=== PATIENT | female | born 1990 | race Caucasian/White ===

== ENCOUNTER → 2023-04-14 | Outpatient (CLI) | payer BC ==
[2023-04-14 12:22] LABS: HEMOGLOBIN A1C 5.4 % (4.0-6.0)
[2023-04-14 12:23] LABS: CHOLESTEROL 140 mg/dL (<200); HDL CHOLESTEROL 69 mg/dL (35-85); LDL DIRECT 72 mg/dL (0-99); TRIGLYCERIDES 38 mg/dL (30-200)
== END | disposition home or self-care (01) ==
LOC: LAB 09:19
PROVIDERS: ATTEND Student in an Organized Health Care Education/Training Program
DX: R00.2 Palpitations (principal); R07.89 Other chest pain
CPT/HCPCS: 36415; 80061; 83036

== ENCOUNTER → 2023-04-17 | Outpatient (CLI) | payer BC ==
[~2023-04-17] MED LIST: IOHEXOL 350 MG/ML 100ML INFUS..BTL IV ONE
== END | disposition home or self-care (01) ==
LOC: RAH 09:02 → EDUNIT# 11:00
PROVIDERS: ATTEND Student in an Organized Health Care Education/Training Program
DX: R07.89 Other chest pain (principal); R00.2 Palpitations
CPT/HCPCS: 75574; Q9967

== ENCOUNTER 2023-07-14 07:08 | Day surgery (SDC) | payer BC ==
[2023-07-09 11:37] LABS: BASOPHILS # (AUTO) 0.03 K/uL (0.00-0.20); BASOPHILS % (AUTO) 0.4 % (0.0-5.0); EOSINOPHILS # (AUTO) 0.11 K/uL (0.00-0.70); EOSINOPHILS % (AUTO) 1.6 % (0.0-8.0); IMMATURE GRANULOCYTE ABSOLUTE 0.02 K/uL (0-1); LYMPHOCYTES # (AUTO) 1.6 K/uL (1.0-4.8); MEAN CORPUSCULAR HEMOGLOBIN 29.1 pg (27.0-33.0); MEAN CORPUSCULAR HGB CONC 32.3 g/dL (32.0-36.0); MEAN CORPUSCULAR VOLUME 90.3 fL (79-99); MONOCYTES # (AUTO) 0.3 K/uL (0.1-1.0); MONOCYTES % (AUTO) 4.9 % (3.0-13.0); NEUTROPHILS # (AUTO) 4.9 K/uL (1.8-7.7); NEUTROPHILS % (AUTO) 69.8 % (40.0-77.0); PLATELET COUNT (AUTO) 136 K/uL (130-400); RED BLOOD CELL COUNT(AUTO) 4.43 MIL/uL (4.00-5.50)
[2023-07-09 11:43] LABS: INR 0.94 (0.85-1.15); PROTHROMBIN TIME 11.1 SEC (9.6-11.6)
[2023-07-09 11:45] LABS: PARTIAL THROMBOPLASTIN TIME 29.9 SEC (26.3-35.5)
[2023-07-09 11:58] LABS: CREATININE 0.5 mg/dL (0.5-1.0); POTASSIUM 4.1 mmol/L (3.5-5.1)
[2023-07-09 12:03] VITALS: BP 139/89; PULSE 62; RESP 18
[2023-07-14] VITALS (10 sets, daily range): BP systolic 113–138; BP diastolic 69–84; PULSE 54–73; RESP 14–16
[~2023-07-14] VITALS: Ht 165.1 cm; Wt 61.5 kg
[~2023-07-14 07:08] MED LIST changes: -IOHEXOL 350 MG/ML 100ML INFUS..BTL IV ONE; +[UNRECOGNIZED DRUG - OTHER] IL
[2023-07-14] MEDS ORDERED: FENTANYL CITRATE PF 50 MCG/1 ML 2ML VIAL ONE (09:00)
[2023-07-14] MEDS ORDERED: LIDOCAINE HCL 2% VISCOUS 15 ML UDCUP ONE (09:03)
[2023-07-14] MEDS: 0.9%NACL 1000ML 1,000 ML IV ONE (09:49)
[2023-07-14] MEDS: FENTANYL CITRATE PF 50 MCG/1 ML 2ML VIAL IVP ONE (09:50)
[2023-07-14] MEDS: MIDAZOLAM HCL 1 MG/ML 2ML VIAL IVP ONE (09:50)
[2023-07-14] MEDS: MIDAZOLAM HCL 1 MG/ML 2ML VIAL ONE (09:50)
== END 2023-07-14 10:40 | disposition home or self-care (01) ==
LOC: DAH 07:08
PROVIDERS: ATTEND Student in an Organized Health Care Education/Training Program
DX: Q21.10 Atrial septal defect, unspecified (principal); I08.3 Combined rheumatic disorders of mitral, aortic and tricuspid valves; R07.89 Other chest pain; R00.2 Palpitations; Z79.899 Other long term (current) drug therapy; Z79.01 Long term (current) use of anticoagulants; Z82.49 Family history of ischemic heart disease and other diseases of the circulatory system
CPT/HCPCS: 80048; 85025; 85610; 85730; 36415; 93005; 93312; 82948; 93325; J3010; J7030; J2250; A4615; A4215; A4657; A4222; A4221; A4663; A4216 ×2; A4606; A4223 ×3; 99152; G0500